=== PATIENT | male | born 1945 | race African-American/Black ===

== ENCOUNTER 2018-02-10 22:37 | Inpatient (IN) | payer MEDICARE ==
[2018-02-10 23:23] LABS: BASOPHILS # (AUTO) 0.1 10^3/uL (0.0-0.1); BASOPHILS % (AUTO) 0.5 %; EOSINOPHILS % (AUTO) 0.1 %; LYMPHOCYTES # (AUTO) 0.9 10^3/uL (1.5-3.5); MEAN CORPUSCULAR HEMOGLOBIN 26.6 pg (27.0-31.0); MEAN CORPUSCULAR HGB CONC 32.6 g/dL (32.0-36.0); MEAN CORPUSCULAR VOLUME 81.5 fL (80.0-94.0); MEAN PLATELET VOLUME 10.2 fL (7.4-11.4); MONOCYTES # (AUTO) 0.4 10^3/uL (0.0-1.0); MONOCYTES % (AUTO) 2.5 %; NEUTROPHILS # (AUTO) 13.6 10^3/uL (1.5-6.6); NEUTROPHILS % (AUTO) 90.9 %; PLT - PLATELET COUNT 277 10^3/uL (130-450); RED BLOOD COUNT 4.53 10^6/uL (4.70-6.10); RED CELL DISTRIBUTION WIDTH 13.7 % (12.0-15.0)
[2018-02-10 23:37] LABS: ALBUMIN 5.1 g/dL (3.2-5.5); ALBUMIN/GLOBULIN RATIO 1.3 (1.0-2.2); BILIRUBIN,TOTAL 0.6 mg/dL (0.2-1.0); CALCIUM 9.5 mg/dL (8.5-10.3); CREATININE 0.8 mg/dL (0.6-1.2); TOTAL PROTEIN 8.9 g/dL (6.7-8.2)
[2018-02-10] MEDS ORDERED: SODIUM CHLORIDE 0.9% 1,000 ML IV ONE (23:46)
[2018-02-10] MEDS ORDERED: ONDANSETRON 4 MG/2 ML VIAL IVP STA (23:46)
[2018-02-10] MEDS ORDERED: MORPHINE 10 MG/ML VIAL IVP STA (23:46)
[2018-02-11] MEDS ORDERED: MORPHINE 10 MG/ML VIAL IVP STA (00:09)
[2018-02-11] MEDS ORDERED: IOPAMIDOL-300 100 ML VIAL ONE (00:39)
[2018-02-11] MEDS ORDERED: IOPAMIDOL-300 100 ML VIAL IVP ONE (01:00)
--- NOTE | 2018-02-11 01:19 | CT Report ---
EXAM: CT ABDOMEN AND PELVIS EXAM DATE: 02/11/2018 01:02 AM. CLINICAL HISTORY: Diffuse lower abdominal pain, leukocytosis. COMPARISONS: None. TECHNIQUE: Routine helical CT imaging was performed through the abdomen and pelvis. IV contrast: 100M L ISOVUE 300. Enteric contrast: No. Reconstructions: Coronal and sagittal. In accordance with CT protocol optimization, one or more of the following dose reduction techniques w ere utilized for this exam: automated exposure control, adjustment of mA and/or KV based on patient s ize, or use of iterative reconstructive technique. FINDINGS: Lung Bases: Minimal bibasilar atelectasis. Calcified subcarinal lymph nodes. Coronary artery calcific ations. Small hiatal hernia. Liver: Possible fatty infiltration. Gallbladder/Bile Ducts: Unremarkable. Spleen: Calcified granulomas. Pancreas: Normal. Adrenal Glands: Normal. Kidneys: Normal. No masses or hydronephrosis. Peritoneal Cavity/Bowel: Dilated small bowel loops with air-fluid levels and decompressed distal loop s, consistent with small bowel obstruction. Transition probably in the anterior mid to left pelvis. N o diverticulitis seen. Normal sized mesenteric lymph nodes. No free air. Trace amount of free fluid. Appendix appears normal. Pelvic Organs: Prostate measures 4.5 x 5.5 cm. Visualized pelvic organs are otherwise unremarkable. Vasculature: Moderate atherosclerosis. No aortic aneurysm. Bones: Grade 1 degenerative spondylolisthesis at L4-L5. Other: None. IMPRESSION: 1. Small bowel obstruction. Transition probably in the anterior mid to left pelvis. 2. Small hiatal hernia. 3. Possible fatty liver. 4. Coronary artery calcifications. [facility] Referring Provider Line: [phone] SITE ID: [id number]
[2018-02-11 01:28] LABS: BILIRUBIN,URINE NEGATIVE (NEGATIVE); GLUCOSE, URINE (UA) NEGATIVE (NEGATIVE); KETONES,URINE (UA) TRACE mg/dL (NEGATIVE); LEUKOCYTE ESTERASE, URINE NEGATIVE (NEGATIVE); NITRITE,URINE NEGATIVE (NEGATIVE); OCCULT BLOOD,URINE LARGE (NEGATIVE); PROTEIN,URINE 100 mg/dL (NEGATIVE); UROBILINOGEN,URINE 0.2 (NORMAL) E.U./dL (NORMAL)
[2018-02-11 01:29] LABS: CLARITY,URINE CLEAR (CLEAR)
[2018-02-11 01:35] LABS: BACTERIA,URINE Rare /HPF (None Seen); CASTS, URINE 3-5 Hyaline Casts /LPF; MUCUS,URINE Moderate Strands; SQUAMOUS EPITHELIAL CELL,UR MOD Squamous (<= Few)
[2018-02-11 01:36] LABS: CRYSTALS,URINE 3-5 Calcium Oxalate /LPF
[2018-02-11] MEDS ORDERED: ONDANSETRON ODT 4 MG TABLET TL PRN (02:27)
[2018-02-11] MEDS ORDERED: ONDANSETRON 4 MG/2 ML VIAL IVP PRN (02:27)
--- NOTE | 2018-02-11 02:29 | ED Physician Documentation ---
PD HPI ABD PAIN - Stated complaint Stated Complaint: ABD PX - Chief complaint Chief Complaint: Abd Pain - History obtained from History obtained from: Patient, Family - History of Present Illness Timing - onset: Today Timing - details: Abrupt onset, Still present Quality: Cramping, Aching, Sharp Location: RLQ, LLQ Worsened by: Eating, Position, Palpation Associated symptoms: Nausea, Constipation. No: Fever, Vomiting, Diarrhea Similar symptoms before: Has not had sx before Recently seen: Not recently seen - Additional information Additional information: patient is a 72 year old male with no significant past medical history who is presenting to the emergency department for abdominal pain. patient states that he came home after going to the gym and he tried to eat something. patient states that he felt like had a lot of gas and severe lower abdominal pain. Patient reports that he was nauseated but denies any vomiting. Patient denies ever having these symptoms before and states that his only abdominal surgery was a colonoscopy and polyp removal. Review of Systems Constitutional: denies: Fever, Chills Eyes: reports: Reviewed and negative Ears: reports: Reviewed and negative Nose: reports: Reviewed and negative Throat: reports: Reviewed and negative Cardiac: denies: Chest pain / pressure, Palpitations GI: reports: Abdominal Pain, Abdominal Swelling, Nausea. denies: Vomiting : reports: Reviewed and negative Skin: denies: Rash, Lesions Musculoskeletal: reports: Back pain. denies: Neck pain, Extremity pain, Joint pain Neurologic: reports: Reviewed and negative Psychiatric: reports: Reviewed and negative Endocrine: reports: Reviewed and negative Immunocompromised: reports: Reviewed and negative PD PAST MEDICAL HISTORY - Past Medical History Past Medical History: No - Past Surgical History Past Surgical History: Yes - Present Medications Home Medications: Ambulatory Orders Medication Instructions Recorded Confirmed No Known Home Medications [No 02/10/18 02/10/18 Known Home Medications] - Allergies Allergies/Adverse Reactions: Allergies Allergy/AdvReac Type Severity Reaction Status Date / Time No Known Drug Allergies Allergy Verified 02/10/18 22:52 - Social History Does the pt smoke?: No Smoking Status: Former smoker Does the pt drink ETOH?: No Does the pt have substance abuse?: No - Immunizations Immunizations are current?: Yes PD ED PE NORMAL - Vitals Vital signs reviewed: Yes - General General: Alert and oriented X 3 - HEENT HEENT: Atraumatic - Neck Neck: Supple, no meningeal sign - Cardiac Cardiac: RRR - Respiratory Respiratory: No respiratory distress - Derm Derm: Normal color, No rash - Extremities Extremities: No deformity, No edema - Neuro Neuro: Alert and oriented X 3, No motor deficit, Normal speech Eye Opening: Spontaneous Motor: Obeys Commands Verbal: Oriented GCS Score: 15 - Psych Psych: Normal mood PD ED PE EXPANDED - General General: Alert, In Pain - HEENT HEENT: Dry mucous membranes - Abdomen Abdomen: Distended, Tender to palpation, RLQ, Suprapubic, LLQ, Generalized/ diffuse. No: Rebound, Guarding Results - Vitals Vitals: Vital Signs - 24 hr 02/10/18 02/11/18 02/11/18 22:51 00:00 00:44 Temperature 36.5 C Heart Rate 104 H 89 78 Respiratory 18 16 16 Rate Blood Pressure 187/74 H 166/58 H 134/62 H O2 Saturation 94 98 96 02/11/18 02/11/18 01:00 02:00 Temperature Heart Rate 78 81 Respiratory Rate Blood Pressure 134/62 H O2 Saturation 98 99 Oxygen O2 Source Room air - Labs Labs: Laboratory Tests 02/10/18 02/10/18 02/11/18 23:17 23:17 01:26 WBC 15.0 H RBC 4.53 L Hgb 12.0 L Hct 36.9 L MCV 81.5 MCH 26.6 L MCHC 32.6 RDW 13.7 Plt Count 277 MPV 10.2 Neut # 13.6 H Lymph # 0.9 L [place] # 0.4 Eos # 0.0 Baso # 0.1 Absolute Nucleated RBC 0.00 Nucleated RBC % 0.0 Sodium 137 Potassium 3.7 Chloride 98 L Carbon Dioxide 26 Anion Gap 13.0 BUN 19 Creatinine 0.8 Estimated GFR (MDRD) 115 Glucose 198 H Calcium 9.5 Total Bilirubin 0.6 AST 22 ALT 24 Alkaline Phosphatase 86 Total Protein 8.9 H Albumin 5.1 Globulin 3.8 Albumin/Globulin Ratio 1.3 Lipase 14 L Urine Color YELLOW Urine Clarity CLEAR Urine pH 5.0 Ur Specific [place] >=1.030 H Urine Protein 100 H Urine Glucose (UA) NEGATIVE Urine Ketones TRACE Urine Occult Blood LARGE H Urine Nitrite NEGATIVE Urine Bilirubin NEGATIVE Urine Urobilinogen 0.2 (NORMAL) Ur Leukocyte Esterase NEGATIVE Urine RBC 11-25 H Urine WBC 0-3 Ur Squamous Epith Cells MOD Squamous H Urine Crystals 3-5 Calcium Oxalate Urine Bacteria Rare Urine Casts 3-5 Hyaline Casts Urine Mucus Moderate Strands Ur Microscopic Review INDICATED Urine Culture Comments NOT INDICATED - Rads (name of study) ct abdomen and pelvis Radiology: Final report received (dilated loops of small bowel and air fluid levels consistent with sbo) PD MEDICAL DECISION MAKING - ED course Complexity details: reviewed old records, reviewed results, re-evaluated patient , considered differential, d/w patient, d/w family, d/w human performance consultant ED course: patient was seen and examined at bedside. patient was alert but in pain. IV access was gained and labs were drawn. patient was treated with morphine 8mg, IV fluids and zofran. Imaging was ordered. Patient's pain had improved but some still remained so 4mg of morphine were ordered. When patient returned from imaging the results were reviewed. patient's findings were consistent with sbo. Hospitalist was contacted and the case was discussed with her. She reported that she would follow up with general surgeon. Patient's abdominal pain was well controlled and patient was admitted for further evaluation and care. Departure - Departure Disposition: [facility] DC/Xfer Clinical Impression: Small bowel obstruction Condition: Stable
[2018-02-11] MEDS: SODIUM CHLORIDE 0.9% 1,000 ML IV SCH ×2 (03:43→13:40)
[2018-02-11] MEDS: HYDROmorphone 1 MG/ML CARPUJECT IVP PRN ×2 (04:05→09:25)
[2018-02-11] MEDS: SODIUM CHLORIDE FLUSH 0.9% 10 ML SYRINGE IVP PRN ×2 (04:06→06:43)
--- NOTE | 2018-02-11 05:33 | HISTORY & PHYSICAL EXAMINATION ---
DATE OF SERVICE: 02/11/2018 Physician: Yvette Llanos MD PRIMARY CARE PROVIDER: None. The patient is from the [facility] and his primary care provider, Dr. Brenda Meyers, retired. He has not had a time to get a new primary care provider. ADMITTING PROVIDER: Yvette Llanos MD CHIEF COMPLAINT: Severe abdominal pain with nausea and vomiting. HISTORY OF PRESENT ILLNESS: The patient is a 72-year-old, black male who has no major past medical history with regard to abdominal surgeries or illness. He says that he has had a colonoscopy in the remote past. He had an episode of increased belching and dyspepsia many years ago. The colonoscopy and upper endoscopy showed him to have "polyps in the stomach." I asked him if he was sure it was the stomach that the polyps were in and he said yes. Everything was benign. He continued to have a lot of belching and dyspepsia, and he uses [id number] antacids and dietary enzyme supplements to help him eat. Otherwise, he has had no change in bowel or bladder habits for decades. He has no blood in his stool, no blood in his urine. He has had no episodes of abdominal pain. He recently came to the [place] in [place]. He and his are both searching for a place to retire and call their "last home." He has been feeling especially energetic and "frisky." In an effort to stay healthy, he has been exercising regularly, eating lots of fruits and veggies, and his protein has been in the form of fish. He cannot believe how good he feels. On the day of admission, he decided to have a little bit of meat. He bought some sausage at the [employer] in [place]. He said about an hour later, he developed severe mid abdominal cramping that took his breath away, and he had to bend over and hold his abdomen because of it. He then had nonstop vomiting that continued to help take his breath away. He had a bowel movement early in the day, but ever since he started the nausea and vomiting, he has had no flatus. He denies fever , denies chills. The mid abdominal cramping stays in the upper to mid abdomen. Nonradiating. Nothing is making it better. He would just prefer to lie still and be in bed with it. He came to the emergency room and was evaluated by Dr. Eddy. Temperature was 36.5. Blood pressure has been 134-166 systolic, oxygenating 97% to 99% on room air, and pulse between 78-89 and sinus. On examination, his belly was distended, tender to palpation in the right lower quadrant, suprapubic area, left lower quadrant. It was generalized and diffuse. No rebound or guarding. There is no mention if there were bowel sounds. His white cell count was 15, 000. An abdomen and pelvis CT showed dilated small bowel loops with air fluid levels and decompressed distal loops, consistent with small bowel obstruction. Transition probably in the anterior mid to left pelvis. No diverticulitis. No free air. Appendix appeared normal. Prostate is large at 4.5 to 5.5 cm. Liver has possible fatty infiltration. His gallbladder and bile ducts are unremarkable. Dr. Eddy has spoken to Dr. Bennett, General Surgery. At this time, the patient can be admitted to the medicine service and, if needed, he will consult. PAST MEDICAL HISTORY 1. Tinea of the feet. 2. Bilateral knee injuries and subsequent surgery. 3. One episode of severely high blood pressure once in the past. 4. Temporary episode of elevated glucose that resolved with diet and exercise. He firmly denies having a diagnosis of hypertension or diabetes. He takes no pills for anything other than [id number] dietary aids. SOCIAL HISTORY: He is from [place], came to [place] as a child and lived in the [facility] for a while. He was a welder production line gas. Moved to [place] 25 years ago. He has been to his third for 25 years. He does have 3 children with his first . They have been looking for home to live in permanently. They have decided to get out of [place] because there are "too many people, too many cars, and too many people with bad attitudes." He used to smoke a pack a day. Stopped smoking 3 months ago. Decided to do this just to be healthy. He has no problems with alcohol abuse. He does about 2 shots at celebratory events, maybe once every 3-4 months. He has no history of recreational substance abuse. He is completely independent with regard to his activities of daily living, driving, etc. FAMILY HISTORY: Denise left him when he was a young boy. Never really knew his dad. His dad's sister did go through the [facility] once and described his dad is having lupus of the brain, but he before he could get see him again. Mom at age 62 of complications of a heart attack. Prior to her , though, she had a rare cancer. No diabetes, no hypertension. Eleven Siblings. All of them are alive. There is some stroke and high blood pressure in some, but other than that, he does not know much more. His 3 children are completely healthy. Patient and both request FULL CODE status for him. REVIEW OF SYSTEMS: Negative. An 10-point review of systems was obtained and other than occasional knee pain and arthritis, the above GI history that abruptly started yesterday, he has a negative review of systems with regard to ENT, cardiac, pulmonary, , skin, endocrine,psychiatric,and [employer]. PHYSICAL EXAMINATION VITAL SIGNS: Pulse is 78, blood pressure 134/62, respirations 16 and unlabored , he is 98% on room air. GENERAL: He is a tall, black male who looks younger than his stated age, no acute distress, and feeling much better than when he was in the emergency room. HEAD AND NECK: Unremarkable. 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 Pupils reactive. Sclerae are nonicteric. Oral mucosa dry. He would do anything for a glass of water. Neck is supple. No JVD. No goiter. LUNGS: Clear to auscultation and percussion. HEART: PMI is normally placed with a regular rate and rhythm. No murmurs, rubs or gallops. ABDOMEN: Seems to have improved tremendously from the time he was in the emergency room to now. It is not distended. Soft. No rebound or guarding. No pain. His says it was tense as a drum before and right now it is quite soft. Hypoactive bowel sounds. Still no flatus. EXTREMITIES: Warm without clubbing, cyanosis or edema. NEUROLOGIC: He is alert and oriented to person, place and time. Follows 2- step commands. Can sit up and transfer without any assistance. No focal deficits noted. LABORATORY DATA: Sodium 137, potassium 3.7, BUN 19, creatinine 0.8, random glucose 198, total protein 8.9. White cell count 15, hemoglobin 12, hematocrit 36.9, platelets 277. Urinalysis has a high specific gravity, proteinuria, hematuria, red cells, 0-3 white cells , moderate squamous cells, calcium oxalate crystals, rare bacteria, hyaline casts, and C and S is going to be done. CT of the abdomen and pelvis as above. ASSESSMENT/PLAN 1. Partial small-bowel obstruction. This patient does not have any antecedent abdominal surgeries or abdominal history. In this age group, intussusception is possible , neoplasm also possible. With pain management and control of symptoms, he already seems to be resolving a little bit. Belly is less tense and distended than it was in the emergency room. He does have a white cell count elevation, but no fever. Plan: a. Admit to inpatient status. Attestation that the patient will be admitted for less than 96 hours. b. Surgery consult in the morning if necessary, but with improved exam and no ever, will hold off for now. c. N.p.o. except for ice chips. d. IV fluids for hydration. e. Antiemetics and pain medicines IV. 2. History of elevated glucose in the past, but no formal diabetes diagnosis. Currently, does have random glucose that is elevated. Plan: Check A1c. 3. FULL CODE status. 4. Deep venous thrombosis prophylaxis with NAE hose. 5. History of HTN. Monitor and if consistently greater than 140 systolic, start meds. TD: 02/11/2018 05:32 ANGEL
[2018-02-11] MEDS ORDERED: PANTOPRAZOLE 40 MG VIAL IVP SCH (07:00)
[2018-02-11] MEDS: SODIUM CHLORIDE FLUSH 0.9% 10 ML SYRINGE IVP SCH ×2 (07:15→12:19)
[2018-02-11] MEDS ORDERED: POLYETHYLENE GLYCOL 3350 17 GM PACKET PO SCH (09:00)
[2018-02-11] MEDS ORDERED: SODIUM CHLORIDE 0.9% 1,000 ML IV SCH (16:16)
--- NOTE | 2018-02-11 16:50 | PROVIDER PROGRESS NOTE ---
Hospitalist Cross-cover Note - Cross-Cover Note Cross-Cover Note: Pt c/o "bilateral neck swelling" at 1630 Pt walking around, no abd pain, is passing gas. Exam: Neck: mild symmetric firmness of tonsilar area, nontender Chest: clear, no wheezing or stridor Abd: soft, nontender, (+) bowel sounds Imp: Resolving SBO Neck swelling, symmetrical, non-tender Plan: Decrease iv rate down from 100 cc/hr, which may be reason for neck swelling Advance diet to start clear liquids
[2018-02-11 18:48] VITALS: BP 173/60
[2018-02-11] MEDS ORDERED: diphenhydrAMINE 25 MG CAPSULE PO PRN (20:37)
--- NOTE | 2018-02-11 20:53 | PROVIDER PROGRESS NOTE ---
Hospitalist Cross-cover Note - Cross-Cover Note Cross-Cover Note: At approximately 8:30 PM I was asked by the floor nurse to see Mr. Fisher regarding questions of swelling in his neck. Apparently Mr. Fisher had been experiencing some feelings of swelling in his neck all day long and he felt that it was getting worse. He denied any airway compromise but said he felt pressure. I examined the patient's neck and did not feel any boggy tissue or anything that felt like swelling and reported this to him. The patient became upset and insisted that I was ignoring his condition. I told him I would be ordering a steroid and Benadryl for him to protect his airway and we will be monitoring him closely. The patient replied that he would not be taking any steroids and would be in fact checking out of the hospital AGAINST MEDICAL ADVICE. I explained that he was making a very dangerous choice and that his airway could swell up and close on him with very little notice and asked him again to reconsider and to take the steroid and Benadryl, however he again refused and stated he is adamant about leaving the hospital tonight. I have advised him that he should return to the emergency room immediately should his neck swelling continued to worsen or should he have any type of airway compromise.
[2018-02-11] MEDS ORDERED: predniSONE 20 MG TABLET PO SCH (21:00)
== END 2018-02-11 20:55 | disposition left against medical advice (07) | DRG 390 ==
LOC: ED 22:37 → MS2 02-11 02:27
PROVIDERS: ADMIT Specialist; ATTEND Specialist
DX: K56.609 Unspecified intestinal obstruction, unspecified as to partial versus complete obstruction (principal); R68.89 Other general symptoms and signs; Z87.891 Personal history of nicotine dependence
CPT/HCPCS: 36415; 74177; 80053; 81001; 81003; 83690; 83735; 84132; 84484; 85025; 87086; 93005; 96361; 96374; 99284

== ENCOUNTER 2019-06-17 15:32 | Inpatient (IN) | payer MEDICARE ==
[2019-06-17] MEDS ORDERED: MORPHINE 2 MG/ML CARPUJECT IVP STA ×2 (16:31→17:04)
[2019-06-17] MEDS ORDERED: ONDANSETRON 4 MG/2 ML VIAL IVP STA (16:31)
--- NOTE | 2019-06-17 16:33 | ED Physician Documentation ---
PD HPI ABD PAIN - Stated complaint Stated Complaint: ABD PX - Chief complaint Chief Complaint: Abd Pain - History obtained from History obtained from: Patient - History of Present Illness Timing - onset: Today (73yo male With history of partial SBO presents with lower and diffuse abdominal pain with vomiting and constipation starting today. He does frequently have similar abdominal pain but less severe and short-lived. No history of abdominal surgeries.) Review of Systems Ten Systems: 10 systems reviewed and negative Constitutional: denies: Fever, Chills Cardiac: reports: Chest pain / pressure ("heartburn"). denies: Palpitations Respiratory: denies: Dyspnea, Cough Neurologic: denies: Generalized weakness, Focal weakness PD PAST MEDICAL HISTORY - Past Surgical History Past Surgical History: Yes - Present Medications Home Medications: Ambulatory Orders Medication Instructions Recorded Confirmed Cholecalciferol (Vitamin D3) 1,000 unit PO DAILY 02/11/18 02/11/18 [Vitamin D3] - Allergies Allergies/Adverse Reactions: Allergies Allergy/AdvReac Type Severity Reaction Status Date / Time No Known Drug Allergies Allergy Verified 02/10/18 22:52 - Social History Does the pt smoke?: No Smoking Status: Former smoker Does the pt drink ETOH?: No Does the pt have substance abuse?: No - Immunizations Immunizations are current?: Yes PD ED PE NORMAL - Vitals Vital signs reviewed: Yes - General General: Alert and oriented X 3, Other (Somewhat uncomfortable) - HEENT HEENT: PERRL, EOMI - Neck Neck: Supple, no meningeal sign, No bony TTP - Cardiac Cardiac: RRR, No murmur - Respiratory Respiratory: No respiratory distress, Clear bilaterally - Abdomen Abdomen: Other (Slightly hyperactive tinkling bowel tones, diffuse tenderness without surgical signs.) - Rectal Rectal: Other (brown guaiac neg stool) - Back Back: No CVA TTP, No spinal TTP - Derm Derm: Normal color, Warm and dry - Extremities Extremities: No edema, No calf tenderness / cord - Neuro Neuro: Alert and oriented X 3, Normal speech Results - Vitals Vitals: Vital Signs - 24 hr 06/17/19 15:41 Temperature 36.5 C Heart Rate 88 Respiratory 18 Rate Blood Pressure 187/68 H O2 Saturation 100 Oxygen O2 Source Room air - EKG (time done) 1647 Rate: Rate (enter#) (83) Rhythm: NSR Intervals: LBBB Compare to prior EKG: Unchanged from prior EKG Computer interpretation: Agree with computer - Labs Labs: Laboratory Tests 06/17/19 06/17/19 06/17/19 16:50 16:50 16:50 WBC 10.7 RBC 4.16 L Hgb 6.8 L* Hct 24.4 L MCV 58.7 L MCH 16.3 L MCHC 27.9 L RDW 21.8 H Plt Count 460 H MPV 9.8 Neut # (Auto) 9.7 H Lymph # (Auto) 0.7 L [place] # (Auto) 0.2 Eos # (Auto) 0.0 Baso # (Auto) 0.1 Absolute Nucleated RBC 0.00 Nucleated RBC % 0.0 Manual Slide Review Indicated Platelet Estimate NORMAL (130-450,000) Platelet Morphology NORMAL APPEARANCE RBC Morph Micro Appear 1+ OVALOCYTES Sodium 137 Potassium 3.8 Chloride 103 Carbon Dioxide 23 Anion Gap 11.0 BUN 18 Creatinine 0.6 Estimated GFR (MDRD) 161 Glucose 147 H Calcium 9.4 Total Bilirubin 0.7 AST 21 ALT 29 Alkaline Phosphatase 75 Troponin I < 0.04 Troponin I High Sens 12.4 Total Protein 8.4 H Albumin 4.6 Globulin 3.8 Albumin/Globulin Ratio 1.2 Lipase 24 - Rads (name of study) CT A/P Radiology: EMP read contemporaneously (SBO with transition mid left abd) PD MEDICAL DECISION MAKING - ED course ED course: 73-year-old gentleman presents with recurrent small bowel obstruction. He is never had abdominal surgeries. Of note he is fairly anemic today at hemoglobin of 6.8, but he is guaiac negative. MCV consistent with iron deficiency anemia and iron panels were added as well as [address] Bennett was consulted and will follow along. Talk with Dr. Borja for admission at 6:14 PM. He is not actively vomiting. Departure - Departure Disposition: 66 [facility] DC/Xfer Clinical Impression: Small bowel obstruction Anemia Qualifiers: Anemia type: unspecified type Qualified Code(s): D64.9 - Anemia, unspecified Condition: Serious
[2019-06-17] MEDS ORDERED: IOVERSOL 320 100 ML VIAL IVP ONE ×2 (16:47→17:35)
[2019-06-17 17:04] LABS: BASOPHILS # (AUTO) 0.1 10^3/uL (0.0-0.1); BASOPHILS % (AUTO) 0.5 %; LYMPHOCYTES # (AUTO) 0.7 10^3/uL (1.5-3.5); LYMPHOCYTES % (AUTO) 6.7 %; MEAN CORPUSCULAR HEMOGLOBIN 16.3 pg (27.0-31.0); MEAN CORPUSCULAR HGB CONC 27.9 g/dL (32.0-36.0); MEAN CORPUSCULAR VOLUME 58.7 fL (80.0-94.0); MEAN PLATELET VOLUME 9.8 fL (7.4-11.4); MONOCYTES # (AUTO) 0.2 10^3/uL (0.0-1.0); MONOCYTES % (AUTO) 1.7 %; NEUTROPHILS # (AUTO) 9.7 10^3/uL (1.5-6.6); NEUTROPHILS % (AUTO) 90.6 %; PLT - PLATELET COUNT 460 10^3/uL (130-450); RED BLOOD COUNT 4.16 10^6/uL (4.70-6.10); RED CELL DISTRIBUTION WIDTH 21.8 % (12.0-15.0); WHITE BLOOD COUNT 10.7 x10^3/uL (4.8-10.8)
[2019-06-17 17:10] LABS: HGB - HEMOGLOBIN 6.8 g/dL (14.0-18.0)
[2019-06-17 17:15] LABS: ALBUMIN 4.6 g/dL (3.2-5.5); ALBUMIN/GLOBULIN RATIO 1.2 (1.0-2.2); BILIRUBIN,TOTAL 0.7 mg/dL (0.2-1.0); CALCIUM 9.4 mg/dL (8.5-10.3); CREATININE 0.6 mg/dL (0.6-1.2); TOTAL PROTEIN 8.4 g/dL (6.7-8.2)
[2019-06-17 17:20] LABS: TROPONIN I < 0.04 ng/mL (<0.49)
[2019-06-17 17:44] LABS: PLATELET ESTIMATE, MANUAL NORMAL (130-450,000) (NORMAL); PLATELET MORPHOLOGY NORMAL APPEARANCE (NORMAL)
--- NOTE | 2019-06-17 17:48 | CT Report ---
Reason: IV only, abd pain, poss sbo Procedure Date: 06/17/2019 Accession Number: [id number] / [id number] Procedure: CT - Abdomen/Pelvis W CPT Code: FULL RESULT: EXAM: CT ABDOMEN AND PELVIS EXAM DATE: 06/17/2019 05:34 PM. CLINICAL HISTORY: Small bowel obstruction. COMPARISONS: ABDOMEN/PELVIS W/ 02/11/2018 12:48 AM. TECHNIQUE: Routine helical CT imaging was performed through the abdomen and pelvis. IV contrast: 100 mL Optiray 320. Enteric contrast: No. Reconstructions: Coronal and sagittal. In accordance with CT protocol optimization, one or more of the following dose reduction techniques were utilized for this exam: automated exposure control, adjustment of mA and/or KV based on patient size, or use of iterative reconstructive technique. FINDINGS: Lung Bases: Unremarkable. Liver: Normal. No masses. Gallbladder/Bile Ducts: Unremarkable. Spleen: Scattered calcifications are seen in the spleen consistent with old granulomatous disease. No masses. Pancreas: Normal. Adrenal Glands: Normal. Kidneys: Normal. No masses or hydronephrosis. Peritoneal Cavity/Bowel: Dilated gas and fluid-filled proximal and mid small bowel loops are seen. Transition point in the left mid abdomen region associated with fecalization of the small bowel contents is noted consistent with obstruction (image 44/4). No free air or abscess. The appendix is well visualized and normal. Pelvic Organs: Small free fluid is seen in the dependent pelvis. No pelvic adenopathy or masses demonstrated. Vasculature: Calcified atherosclerotic disease of the aorta is seen without aneurysm or other significant vascular abnormality. Bones: Diffuse degenerative changes are seen in the spine. No acute osseous abnormality is demonstrated. Other: None. IMPRESSION: Small bowel obstruction with transition in the mid left abdomen region. No hernia or masses identified. Small free fluid seen in the pelvis. No free air or abscess. [facility]
[2019-06-17] MEDS ORDERED: PANTOPRAZOLE 40 MG VIAL IVP STA (17:54)
[2019-06-17] MEDS ORDERED: ONDANSETRON 4 MG/2 ML VIAL IVP PRN (18:24)
[2019-06-17 18:26] LABS: % IRON SATURATION 1 % (20-50); IRON 7 ug/dL (45-182); TOTAL IRON BINDING CAPACITY 545 ug/dL (250-450); TRANSFERRIN 389 mg/dL (180-329)
[2019-06-17] MEDS: MORPHINE 2 MG/ML CARPUJECT IVP PRN ×2 (21:17→23:01)
[2019-06-17] MEDS: FAMOTIDINE 20 MG/2 ML VIAL IVP SCH (21:17)
[2019-06-17] MEDS: SODIUM CHLORIDE FLUSH 0.9% 10 ML SYRINGE IVP SCH (21:18)
[2019-06-17 21:30] LABS: BILIRUBIN,URINE NEGATIVE (NEGATIVE); GLUCOSE, URINE (UA) NEGATIVE (NEGATIVE); KETONES,URINE (UA) NEGATIVE (NEGATIVE); LEUKOCYTE ESTERASE, URINE NEGATIVE (NEGATIVE); NITRITE,URINE NEGATIVE (NEGATIVE); OCCULT BLOOD,URINE NEGATIVE (NEGATIVE); PROTEIN,URINE 30 mg/dL (NEGATIVE); UROBILINOGEN,URINE 0.2 (NORMAL) E.U./dL (NORMAL)
[2019-06-17 21:50] LABS: BACTERIA,URINE None Seen /HPF (None Seen); CLARITY,URINE CLEAR (CLEAR); RBC,URINE None Seen /HPF (0-5); SQUAMOUS EPITHELIAL CELL,UR NONE SEEN (<= Few)
--- NOTE | 2019-06-17 22:43 | HISTORY & PHYSICAL EXAMINATION ---
Chief Complaint - Chief Complaint Chief Complaint: abdominal pain History of Present Illness - Admitted From Admitted From:: [facility] ED - History Obtained From Records Reviewed: yes History obtained from: patient - History of Present Illness HPI Comment/Other: Patient seen on 06/17/19 at 20:00pm Patient is a 73 y/o male who presented to the ED with complain of sharp non- radiating abdominal pain just below his umbilicus. He rated it 10/10 at the time. Onset of symptoms was this morning when he woke up from sleep. He reported burping a lot. He took a naturopathic equivalent of tums but his symptoms got worse. He attempted to induce vomiting but had not relief. His last owel movement was this morning and he describes straining. He generally has a problem with constipation. He denied chest pain, COLLEEN, hematochezia or melena. In the ED work up includded a CT of the abdomen which showed a small bowel obstruction. He was also found to be anemic with a hemoglobin of 6.8. His last admission was January 2018. At that time his hemoglobin was 12. He reports subjective history of fever and chill, but adds that he has been eating ice (? pica). He frequently gets heart burn. At bedside he still complains of abdominal pain but appears more comfortable. His abdomen is soft to palpation. He has history of polyposis and is very overdue for a follow up colonoscopy. History - Past Medical History Cardiovascular: reports: None Respiratory: reports: None Neuro: reports: None Endocrine/Autoimmune: reports: None GI: reports: Colon polyps (Polyposis), Other (Polyposis) : reports: None Psych: reports: None Musculoskeletal: reports: None Derm: reports: None MRSA Hx?: No - Past Surgical History Ortho: reports: Other (bilateral knee surgeries) - Family & Social History Family History Comment/Other: Did not know his father. Mother at age 62 of complications of a heart attack. She also had a rare cancer prior to her . No diabetes, no hypertension. 11 siblings, all of them alive. History of stroke and hypertension in some of them but he is not familiar with the specifics. 3 children healthy. Living arrangement: At home Living Situation: With spouse/s.o. Social History Notes: He smokes 1/2 ppd. Has been smoking on and off since age 18. He rarely drinks. He denied any illiit drugs - POLST Patient has POLST: No POLST Status: Full Code Meds/Allgy - Home Medications Home Medications: Ambulatory Orders Medication Instructions Recorded Confirmed Cholecalciferol (Vitamin D3) 1,000 unit PO DAILY 02/11/18 02/11/18 [Vitamin D3] - Allergies Allergies/Adverse Reactions: Allergies Allergy/AdvReac Type Severity Reaction Status Date / Time No Known Drug Allergies Allergy Verified 02/10/18 22:52 Review of Systems - Constitutional Constitutional: reports: Fatigue, Chills, Weakness. denies: Fever, Malaise, Diaphoresis - Eyes Eyes: denies: Pain, Blurred vision, Vision loss, Dipolpia - Ears, Nose & Throat Ears, Nose & Throat: denies: Nasal pain, Sore throat, Hoarseness - Cardiovascular Cariovascular: denies: Irregular heart rate, Palpitations, Chest pain, Edema, Syncope - Respiratory Respiratory: denies: Cough, Sputum production, Wheezing, Hemoptysis, SOB at res t, SOB with exertion - Gastrointestinal Gastrointestinal: reports: Abdominal pain, Constipation, Nausea, Vomiting, Reflux/heartburn. denies: Abdominal distention, Diarrhea, Rectal bleeding, Black stools, Bloody stools, Bile emesis, Bill blood emesis, Coffee grounds emesis - Genitourinary Genitourinary: denies: Dysuria, Frequency, Urgency, Hematuria, Incontinence, Flank pain - Musculoskeletal Musculoskeletal: denies: Muscle pain, Muscle aches, Gout, Joint pain - Integumentary Integumentary: denies: Rash, Pruritis, Lesions, Dryness - Neurological Neurological: denies: General weakness, Focal weakness, Headache, Dizziness, Abnormal gait, Seizures, Incoordination, Slurred speech - Psychiatric Psychiatric: denies: Depression, Anxiety, Suicidal, Delusions, Hallucinations - Endocrine Endocrine: denies: Polydypsia - Hematologic/Lymphatic Hematologic/Lymphatic: reports: Anemia. denies: Bruising, Petechiae, Blood clots Prior Level of Functionality: Patient is independent of activities of daily living Exam - Vital Signs Vital Signs: Vital Signs x48h Temp Pulse Pulse Resp BP BP Pulse Ox 06/17/19 21:30 36.9 C 71 16 135/52 H 06/17/19 19:35 36.7 C 77 17 143/50 H 06/17/19 19:20 36.7 C 74 16 153/51 H 06/17/19 18:59 36.7 C 74 16 153/51 H 99 06/17/19 18:17 36.6 C 72 18 138/50 H 97 06/17/19 15:41 36.5 C 88 18 187/68 H 100 - Physical Exam General Appearance: positive: Alert, Moderate distress Eyes Bilateral: positive: Normal inspection, PERRL, EOMI ENT: positive: ENT inspection nml, No signs of dehydration Neck: positive: Nml inspection, No JVD, Trachea midline Respiratory: positive: Breath sounds nml. negative: Chest non-tender, No respiratory distress, Wheezes, Rales, Rhonchi Cardiovascular: positive: Regular rate & rhythm. negative: No murmur, No gallop, Irregularly irregular Abdomen: positive: Tenderness. negative: No distention, Guarding Back: positive: Nml inspection Skin: positive: Color nml, No rash, Warm, Dry. negative: Cyanosis Extremities: positive: Non-tender, Full ROM, Nml appearance, No pedal edema Neurologic/Psychiatric: positive: Oriented x3, CN's nml (2-12), Motor nml, S ensation nml Conclusion/Plan - Problem List (1) Small bowel obstruction Conclusion/Plan: NPO. Bowel rest. IV hydration General Surgery will see patient in the am (2) Anemia Conclusion/Plan: Etiology undetermined Likely iron deficiency and/or GI bleed. MCV 58, Iron 5, TIBC 545 and Transferrin 389 Fecal occult blood test pending Patient received 1 unit of PRBC r/o malignancy Patient has history of polyposis and is past due for follow up colonoscopy Spoke with Dr Bennett. Likely colonoscopy outpatient. He will see the patient in the am Qualifiers: Anemia type: unspecified type Qualified Code(s): D64.9 - Anemia, unspec ified - Lab Results Fish Bones: 06/17/19 16:50 06/17/19 16:50 Core Measures - Anticipated LOS I expect patient to be DC'd or transferred within 96 hours.: Yes - DVT/VTE - Prophylaxis VTE/DVT Device ordered at admit?: Yes VTE/DVT Prophylaxis med ordered at admit?: No Not Ordered - Medical Reason: Contraindicated (anemia)
[2019-06-18 05:22] LABS: BASOPHILS # (AUTO) 0.1 10^3/uL (0.0-0.1); BASOPHILS % (AUTO) 0.8 %; EOSINOPHILS # (AUTO) 0.1 10^3/uL (0.0-0.7); EOSINOPHILS % (AUTO) 1.4 %; LYMPHOCYTES # (AUTO) 2.2 10^3/uL (1.5-3.5); MEAN CORPUSCULAR HEMOGLOBIN 17.9 pg (27.0-31.0); MEAN CORPUSCULAR HGB CONC 29.6 g/dL (32.0-36.0); MEAN CORPUSCULAR VOLUME 60.4 fL (80.0-94.0); MEAN PLATELET VOLUME 9.7 fL (7.4-11.4); MONOCYTES # (AUTO) 0.7 10^3/uL (0.0-1.0); MONOCYTES % (AUTO) 7.5 %; NEUTROPHILS # (AUTO) 5.7 10^3/uL (1.5-6.6); PLT - PLATELET COUNT 370 10^3/uL (130-450); RED BLOOD COUNT 3.74 10^6/uL (4.70-6.10); RED CELL DISTRIBUTION WIDTH 23.3 % (12.0-15.0); WHITE BLOOD COUNT 8.8 x10^3/uL (4.8-10.8)
[2019-06-18 05:30] LABS: HGB - HEMOGLOBIN 6.7 g/dL (14.0-18.0)
[2019-06-18 06:11] LABS: PLATELET ESTIMATE, MANUAL NORMAL (130-450,000) (NORMAL)
[2019-06-18] MEDS: MORPHINE 2 MG/ML CARPUJECT IVP PRN ×2 (06:31→16:19)
[2019-06-18] MEDS: SODIUM CHLORIDE FLUSH 0.9% 10 ML SYRINGE IVP PRN ×2 (06:46→10:18)
[2019-06-18] MEDS ORDERED: SODIUM CHLORIDE 0.9% 500 ML ONE (07:00)
[2019-06-18] MEDS ORDERED: POLYETHYLENE GLYCOL 3350 17 GM PACKET PO SCH (09:00)
[2019-06-18] MEDS ORDERED: DIATR MEGLU/DIATRIZOATE SODIUM 120 ML BOTTLE PO ONE (09:04)
[2019-06-18] MEDS ORDERED: DEXAMETHASONE 10 MG/ML VIAL IVP ONE (09:04)
[2019-06-18] MEDS ORDERED: IPRATROPIUM/ALBUTEROL 3 ML NEB INH SCH (09:06)
[2019-06-18] MEDS ORDERED: ACETAMINOPHEN 325 MG TABLET PO PRN (09:06)
[2019-06-18] MEDS: FAMOTIDINE 20 MG/2 ML VIAL IVP SCH (10:17)
[2019-06-18] MEDS: SODIUM CHLORIDE FLUSH 0.9% 10 ML SYRINGE IVP SCH ×2 (10:18→16:18)
[2019-06-18] MEDS ORDERED: IPRATROPIUM/ALBUTEROL 3 ML NEB INH PRN (10:58)
--- NOTE | 2019-06-18 11:34 | XRAY Report ---
Reason: SBO - SBFT Challenge Panel Procedure Date: 06/18/2019 Accession Number: [id number] / [id number] Procedure: XR - Abdomen 1 View X-Ray CPT Code: 38854 FULL RESULT: EXAM: ABDOMEN RADIOGRAPHY EXAM DATE: 06/18/2019 10:23 AM. CLINICAL HISTORY: Small bowel obstruction. Small bowel follow-through (SBFT) challenge panel. COMPARISON: None. TECHNIQUE: 1 view. FINDINGS: Bowel Gas Pattern: Within normal limits. No dilated loops. Other: Gastrografin is seen in stomach and most proximal portion of the duodenum. Contrast is seen in the bladder, likely excretion of previous intravenous contrast. IMPRESSION: Contrast in stomach. RADIA
[2019-06-18 12:33] LABS: HGB - HEMOGLOBIN 8.1 g/dL (14.0-18.0)
[2019-06-18] MEDS ORDERED: diphenhydrAMINE 25 MG CAPSULE PO PRN (14:29)
--- NOTE | 2019-06-18 15:37 | XRAY Report ---
Reason: SBO - SBFT Challenge Panel Procedure Date: 06/18/2019 Accession Number: [id number] / [id number] Procedure: XR - Abdomen 1 View X-Ray CPT Code: 87287 FULL RESULT: EXAM: ABDOMEN RADIOGRAPHY EXAM DATE: 06/18/2019 02:18 PM. CLINICAL HISTORY: SBO - SBFT Challenge Panel. COMPARISON: ABDOMEN 1 VIEW 06/18/2019 10:02 AM ABDOMEN/PELVIS W/ 06/17/2019 5:29 PM. TECHNIQUE: 1 view. FINDINGS: Bowel Gas Pattern: Gastrografin is present throughout the colon. Mildly dilated left upper quadrant small bowel loop of 3.6 cm diameter, previously 5.4 cm at 10:02 AM earlier today. Other: Calcified mediastinal lymph nodes from remote granulomatous disease.. IMPRESSION: 1. Successful Gastrografin challenge. Gastrografin is present throughout the colon on 4 hour film. 2. Some residual dilatation of small bowel within left upper quadrant with 3.6 cm projected diameter, previously 5.4 cm on single view abdomen earlier today. RADIA
--- NOTE | 2019-06-18 17:10 | Discharge Plan ---
Discharge Plan Problem Reviewed?: Yes Disposition: Home, Self Care Condition: Good Prescriptions: diphenhydrAMINE [Benadryl] 25 mg PO Q4HR PRN #30 capsule PRN Reason: Allergy Symptoms Ferrous Gluconate [Iron] 240 mg PO BID #60 tablet Wheat Dextrin [Benefiber] 1 each PO DAILY #30 powd.pack Diet: Regular Activity Restrictions: Activity as Tolerated Shower Restrictions: No Health Concerns: Small bowel obstruction Anemia Swollen neck- Bilateral lymph node enlargement Plan of Treatment: See general surgery outpatient in the next few weeks for a colonoscopy/EGD which will need to be ordered by your Primary care provider Continue daily benefiber, avoid raw vegetables or food items that could get easily stuck in transit Continue your activity each day, and rest when you are tired Continue benadryl at home as needed for the swelling in your neck Care Goals: Prevent hospital stays Prevent bowel obstructions Prevent neck swelling Assessment: Please see your PCP within the next 1 week Please start an iron supplement and take daily benefiber (avoid taking these at the same time) You can try over the counter ant-acids such as Protonix, Prilosec or Zantac for your heart burn symptoms You may benefit from allergy testing, or further work up for the neck swelling No Smoking: If you smoke, Please STOP! Call for help.
--- NOTE | 2019-06-18 17:16 | DISCHARGE SUMMARY ---
Discharge Summary Admit Date: 06/17/19 Discharge Date: 06/18/19 Discharging Provider: WILLEM Barr Primary Care Provider: Kristel Perla Code Status: Attempt Resuscitation Condition at Discharge: Good Discharge Disposition: 01 Home, Self Care - DIAGNOSES Admission Diagnoses: Small bowel obstruction Anemia Discharge Diagnoses with Status of Each Condition: Small bowel obstruction- resolved, patient passing gas, normal bowel sounds, no rmal physical exam Iron deficiency anemia- chronic, stable, continue on iron supplement, needs follow up procedures of EGD/colonoscopy Lymphadenopathy of head and neck region- improved, continue short course of benadryl for this evening, then as needed Tobacco dependence- continues to smoke with no interest in stopping, follow up with PCP, consider pulmonary rehab to assist with quitting Encounter for blood transfusion- status post 2 units of PRBCs Constipation- resolved GERD- chronic, stable - HPI History of Present Illness: HPI per Dr. Bess: Patient seen on 06/17/19 at 20:00pm Patient is a 73 y/o male who presented to the ED with complain of sharp non- radiating abdominal pain just below his umbilicus. He rated it 10/10 at the time. Onset of symptoms was this morning when he woke up from sleep. He reported burping a lot. He took a naturopathic equivalent of tums but his symptoms got worse. He attempted to induce vomiting but had not relief. His last owel movement was this morning and he describes straining. He generally has a problem with constipation. He denied chest pain, COLLEEN, hematochezia or melena. In the ED work up includded a CT of the abdomen which showed a small bowel obstruction. He was also found to be anemic with a hemoglobin of 6.8. His last admission was January 2018. At that time his hemoglobin was 12. He reports subjective history of fever and chill, but adds that he has been eating ice (? pica). He frequently gets heart burn. At bedside he still complains of abdominal pain but appears more comfortable. His abdomen is soft to palpation. He has history of polyposis and is very overdue for a follow up colonoscopy. - CONSULTS | PROCEDURES Consultations: General surgery- Dr. Cleveland Procedures: Per Dr. Cleveland: "We discussed the fact that considering the fact that he had had 12 or so polyps removed during his last colonoscopy that he should have a repeat colonoscopy and that he is overdue for this. Both he and his indicated they wished to have me perform this procedure for him. I explained that we would be doing this as an outpatient". - HOSPITAL COURSE Hospital Course: The patient stayed one night and had a complete resolution of his SBO, which was his admitting diagnosis after one dose of gastro-grafin and with ambulation. He was tolerating a regular diet, + flatus, and small BM. Nearly 12 hours after presenting in the ED he had bilateral lymph node neck swelling, similar to other hospital stays (thought to be most likely from contrast used for initial CT). He had no changes in his breathing, a non-productive cough, no shortness of breath and his neck swelling was at least 50% reduced at the time of discharge. General surgery met with him and he will plan for an outpatient colonoscopy. He was encouraged to stop smoking, but states that it was not the right time. He was medically stable and transported home with his . - ALLERGIES Allergies/Adverse Reactions: Allergies Allergy/AdvReac Type Severity Reaction Status Date / Time No Known Drug Allergies Allergy Verified 02/10/18 22:52 - MEDICATIONS Home Medications: Ambulatory Orders Medication Instructions Recorded Confirmed Calcium Carbonate [Antacid] 128 mg PO DAILY PRN 06/18/19 06/18/19 Ferrous Gluconate [Iron] 240 mg PO BID #60 tablet 06/18/19 Wheat Dextrin [Benefiber] 1 each PO DAILY #30 powd.pack 06/18/19 diphenhydrAMINE [Benadryl] 25 mg PO Q4HR PRN #30 capsule 06/18/19 - PHYSICAL EXAM AT DISCHARGE General Appearance: positive: No acute distress, Alert Eyes Bilateral: positive: PERRL ENT: positive: No signs of dehydration, Pharyngeal erythema, Other (bilateral symetrical lymph node swelling, which is reduced since this AM) Neck: positive: No JVD, Trachea midline, Lymphadenopathy (R), Lymphadenopathy (L), Stiff neck Respiratory: positive: Chest non-tender, No respiratory distress, Breath sounds nml Cardiovascular: positive: Regular rate & rhythm, No gallop, Systolic murmur Peripheral Pulses: positive: 2+ Abdomen: positive: Non-tender, Nml bowel sounds, No distention Back: positive: Nml inspection Skin: positive: Color nml, No rash, Warm, Dry Extremities: positive: Non-tender, Full ROM, Nml appearance, No pedal edema Neurologic/Psychiatric: positive: Oriented x3, CN's nml (2-12), Motor nml, Sensation nml, Mood/affect nml Reflexes: Bicep (R): 3+, Bicep (L): 3+ - LABS Result Diagrams: 06/18/19 12:15 06/17/19 16:50 - DIAGNOSTIC IMAGING Diagnostic Imaging Results: Final report reviewed Diagnostic Imaging Results Comments: EXAM: ABDOMEN RADIOGRAPHY EXAM DATE: 06/18/2019 10:23 AM FINDINGS: Bowel Gas Pattern: Within normal limits. No dilated loops. Other: Gastrografin is seen in stomach and most proximal portion of the duodenum. Contrast is seen in the bladder, likely excretion of previous intravenous contrast. IMPRESSION: Contrast in stomach. EXAM: ABDOMEN RADIOGRAPHY EXAM DATE: 06/18/2019 02:18 PM IMPRESSION: 1. Successful Gastrografin challenge. Gastrografin is present throughout the colon on 4 hour film. 2. Some residual dilatation of small bowel within left upper quadrant with 3.6 cm projected diameter, previously 5.4 cm on single view abdomen earlier today. - FOLLOW UP Follow Up: Disposition: Home Prescriptions: diphenhydrAMINE [Benadryl] 25 mg PO Q4HR PRN #30 capsule PRN Reason: Allergy Symptoms Ferrous Gluconate [Iron] 240 mg PO BID #60 tablet Wheat Dextrin [Benefiber] 1 each PO DAILY #30 powd.pack Health Concerns: Small bowel obstruction, Anemia, Swollen neck- Bilateral lymph node enlargement Plan of Treatment: See general surgery outpatient in the next few weeks for a colonoscopy/EGD which will need to be ordered by your Primary care provider Continue daily benefiber, avoid raw vegetables or food items that could get easily stuck in transit Continue your activity each day, and rest when you are tired Continue benadryl at home as needed for the swelling in your neck Care Goals: Prevent hospital stays, Prevent bowel obstructions, Prevent neck swelling Assessment: Please see your PCP within the next 1 week, follow up with General surgery for an outpatient colonoscopy Please start an iron supplement and take daily benefiber (avoid taking these at the same time) You can try over the counter ant-acids such as Protonix, Prilosec or Zantac for your heart burn symptoms You may benefit from allergy testing, or further work up for the neck swelling - TIME SPENT Time Spent in Discharge (Minutes): 55
[2019-06-18 17:54] VITALS: BP 182/64
--- NOTE | 2019-06-19 00:07 | CONSULTATION NOTE ---
Referring Provider Name of Referring Provider:: Dawna Covarrubias Consult Date: 06/18/19 Chief Complaint - Chief Complaint Chief Complaint: Abdominal pain History of Present Illness - History Obtained From Records Reviewed: Yes History obtained from: Patient and chart Exam Limitations: None - History of Present Illness HPI Comment/Other: The patient and his are exceedingly pleasant and evaluated in room 2203 at [facility] unit. The patient is 73 years old and has had previous obstructions that have resolved without surgical intervention. When I stopped to see the patient on the evening of June 17, Dr. Bess was visiting with the patient and I opted to wait until June 18 to see the patient as it was unlikely that the patient would require surgical intervention. By the time of this patient on June 18 I was reporting to him that the Gastrografin challenge that have been ordered by Dawna Covarrubias had shown that there was no obstruction and that he would likely be going home. He was delighted with this news. We discussed the fact that considering the fact that he had had 12 or so polyps removed during his last colonoscopy that he should have a repeat colonoscopy and that he is overdue for this. Both he and his indicated they wished to have me perform this procedure for him. I explained that we would be doing this as an outpatient. History - Past Medical History Cardiovascular: reports: None Respiratory: reports: None Neuro: reports: None Endocrine/Autoimmune: reports: None GI: reports: Colon polyps (Polyposis), Other (Polyposis) : reports: None Psych: reports: None Musculoskeletal: reports: None Derm: reports: None MRSA Hx?: No - Past Surgical History Ortho: reports: Other (bilateral knee surgeries) - Family & Social History Family History Comment/Other: Did not know his father. Mother at age 62 of complications of a heart attack. She also had a rare cancer prior to her . No diabetes, no hypertension. 11 siblings, all of them alive. History of stroke and hypertension in some of them but he is not familiar with the specifics. 3 children healthy. Living arrangement: At home Living Situation: With spouse/s.o. Social History Notes: He smokes 1/2 ppd. Has been smoking on and off since age 18. He rarely drinks. He denied any illiit drugs - POLST Patient has POLST: No POLST Status: Full Code Meds/Allgy - Home Medications Home Medications: Ambulatory Orders Medication Instructions Recorded Confirmed Calcium Carbonate [Antacid] 128 mg PO DAILY PRN 06/18/19 06/18/19 Ferrous Gluconate [Iron] 240 mg PO BID #60 tablet 06/18/19 Wheat Dextrin [Benefiber] 1 each PO DAILY #30 powd.pack 06/18/19 diphenhydrAMINE [Benadryl] 25 mg PO Q4HR PRN #30 capsule 06/18/19 - Allergies Allergies/Adverse Reactions: Allergies Allergy/AdvReac Type Severity Reaction Status Date / Time No Known Drug Allergies Allergy Verified 02/10/18 22:52 Exam - Vital Signs Vital Signs: Vital Signs x48h Temp Pulse Resp BP Pulse Ox 06/18/19 17:48 36.5 C 84 16 182/64 H 100 - Physical Exam Abdomen: positive: Non-tender, Nml bowel sounds, No distention Conclusion/Plan - Diagnosis Diagnosis: Intermittent small bowel obstruction that again has resolved conservatively and documented with a Gastrografin challenge - Plan Plan: Discharge the patient home and have him follow-up with me as an outpatient for an overdue colonoscopy to evaluate his multiple polyps. I have asked him to contact us with any surgical questions and or concerns. I did explain to him that this small bowel obstruction may occur yet again and at some point time he may not be able to avoid operation but fortunately today he has. I wished him well. Kevan disclaimer: This document was created in part using voice recognition technology. Because of the inherent limitations of the system ([employer]'s [employer] user manual states that the licensee understands that speech recognition is a statistical process and that recognition errors are inherent in the process), occasional same sounding word substitutions and grammatical errors do occur and persist despite proofreading. Please read this document for context. - Lab Results Fish Bones: 06/18/19 12:15 06/17/19 16:50
== END 2019-06-18 18:15 | disposition home or self-care (01) | DRG 390 ==
LOC: ED 15:32 → SUATTDRO 15:32 → MS2 18:24
PROVIDERS: ADMIT Internal Medicine; ATTEND Nurse Practitioner
PROC: 30233N1 Transfusion of Nonautologous Red Blood Cells into Peripheral Vein, Percutaneous Approach (ICD-10-PCS; principal; 2019-06-18)
DX: K56.609 Unspecified intestinal obstruction, unspecified as to partial versus complete obstruction (principal); D64.9 Anemia, unspecified; K59.00 Constipation, unspecified; Z87.891 Personal history of nicotine dependence; D50.9 Iron deficiency anemia, unspecified; K21.9 Gastro-esophageal reflux disease without esophagitis; R59.0 Localized enlarged lymph nodes; T50.8X5A Adverse effect of diagnostic agents, initial encounter; Y92.238 Other place in hospital as the place of occurrence of the external cause; F17.210 Nicotine dependence, cigarettes, uncomplicated; Z86.010 Personal history of colon polyps
CPT/HCPCS: 36415; 36430; 74018; 74177; 74250; 80053; 81001; 83540; 83690; 84466; 84484; 85014; 85018; 85025; 86850; 86900; 86901; 86920; 93005; 96374; 96375; 96376; 99284; 99285; A9270; P9016; Q9963; Q9967; 81003; 87086